=== PATIENT | female | born 1980 | race Caucasian/White ===

== ENCOUNTER → 2017-12-18 | Outpatient (CLI) | payer BC | END | disposition home or self-care (01) | LOC: LAB UCHC 11:00 → LAB SHORT 11:00 | PROVIDERS: Physician Assistant | DX: Z12.4 Encounter for screening for malignant neoplasm of cervix (principal) | CPT/HCPCS: 87624; G0123 ==

== ENCOUNTER → 2021-07-03 | Outpatient (CLI) | payer BC | END | disposition home or self-care (01) | LOC: LAB 16:18 → LAB SHORT 16:18 | DX: R30.0 Dysuria (principal) | CPT/HCPCS: 87086 ==

== ENCOUNTER 2022-05-26 09:19 | Day surgery (SDC) | payer BC ==
[~2022-05-26] VITALS: Ht 170.2 cm; Wt 79.9 kg
[2022-05-26] MEDS ORDERED: SERT50 PO (09:46)
--- NOTE | 2022-05-26 11:32 | NUR ---
05/26/22 1132 Starla Del Rosario FLUID DEFICIT ON MYOSURE OF [address] MLS. DRS NOTIFIED. NO ORDERS.
--- NOTE | 2022-05-26 12:11 | NUR ---
05/26/22 1211 Augusto Kwong NOT ABLE TO PRINT VSS. ALL VITAL SIGNS WNL.
== END 2022-05-26 12:22 | disposition home or self-care (01) ==
LOC: ORSCSDS 09:19
PROVIDERS: Obstetrics & Gynecology
PROC: 0UDB7ZX Extraction of Endometrium, Via Natural or Artificial Opening, Diagnostic (ICD-10-PCS; principal; 2022-05-26 10:30)
PROC: 0U5B8ZZ Destruction of Endometrium, Via Natural or Artificial Opening Endoscopic (ICD-10-PCS; principal; 2022-05-26 10:30)
DX: N92.0 Excessive and frequent menstruation with regular cycle (principal); D50.0 Iron deficiency anemia secondary to blood loss (chronic); N94.6 Dysmenorrhea, unspecified; F32.A Depression, unspecified; Z79.899 Other long term (current) drug therapy; Z87.891 Personal history of nicotine dependence
CPT/HCPCS: 88305; A9270; J0690; J1100; J1885; J2405; J2704; J3010; J7120

== ENCOUNTER → 2022-07-25 | Outpatient (CLI) | payer BC ==
[~2022-07-25] MED LIST: SERT50 PO
== END ==
LOC: LAB SHORT 16:15 → LAB 16:15
PROVIDERS: Hospitalist
DX: Z12.4 Encounter for screening for malignant neoplasm of cervix (principal)
CPT/HCPCS: G0145